=== PATIENT | male | born 1960 | race Caucasian/White ===

== ENCOUNTER → 2017-01-18 | Outpatient (CLI) | payer OTHER ==
[2017-01-18 08:02] LABS: BASO % 0.6 % (0.0-1.0); EOS # 0.3 10*3/uL (0.0-0.4); EOS % 4.4 % (1.0-4.0); HEMATOCRIT 45.8 % (42.0-52.0); IG # 0.1 10*3/uL (0.0-0.1); LYMPH # 2.3 10*3/uL (1.3-4.4); MEAN CELL VOLUME 87.4 fl (80.0-94.0); MEAN CORPUSCULAR HGB 30.5 pg (27.0-31.0); MEAN CORPUSCULAR HGB CONC 34.9 g/dl (33.0-37.0); MEAN PLATELET VOLUME 10.3 fl (9.6-12.3); MONO # 0.9 10*3/uL (0.1-1.0); MONO % 12.4 % (3.0-9.0); NEUT # 3.3 10*3/uL (2.3-7.9); NEUT % 47.9 % (47.0-73.0); PLATELET COUNT AUTOMATED 203 10*3/uL (130-400); RED BLOOD COUNT 5.24 10*6/uL (4.50-5.90); RED CELL DISTRI WIDTH 13.1 % (0-14.5); WHITE BLOOD COUNT 6.9 10*3/uL (4.8-10.8)
[2017-01-18 08:17] LABS: ALBUMIN 3.9 gm/dl (3.1-4.5); ALKALINE PHOSPHATASE 61 U/L (45-117); BILIRUBIN, TOTAL 0.4 mg/dl (0.2-1.0); BUN 22 mg/dl (7-24); CARBON DIOXIDE 23 mmol/L (21-32); CHLORIDE 108 mmol/L (98-107); CHOLESTEROL 221 mg/dL (<200); EST GLOM FILT AFRICAN AMERICAN > 60 ml/min; GLUCOSE 99 mg/dL (65-99); HDL CHOLESTEROL 36 mg/dl (40-60); LDL CHOLESTEROL 133 mg/dL (9-159); POTASSIUM 3.8 mmol/L (3.5-5.1); SGOT/AST 17 IU/L (3-35); SGPT/ALT 37 U/L (12-78); SODIUM 142 mmol/L (136-145); TOTAL PROTEIN 7.3 gm/dL (6.4-8.2); TRIGLYCERIDES 261 mg/dl (<150); VLDL CHOLESTEROL 52 mg/dL (6-40)
== END | disposition home or self-care (01) ==
LOC: LAB 06:58
PROVIDERS: Nurse Practitioner Family
DX: Z12.5 Encounter for screening for malignant neoplasm of prostate (principal); I10 Essential (primary) hypertension; R53.83 Other fatigue

== ENCOUNTER 2018-04-26 15:14 | Inpatient (IN) | payer OTHER ==
[~2018-04-26] VITALS: Ht 180.3 cm
--- NOTE | ~2018-04-26 | EKG ---
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 Electronically Signed On 04-29-2018 18:42:48 PST by Jayson Collazo MD CM:EKGRPT:ELECTROCARDIOGRAM REPORT [id number] MAYRA ESTEVEZ DRAFT REPORT MAYRA TRAORE M.D.
--- NOTE | ~2018-04-26 | ST ---
[place], [place] EXERCISE STRESS TEST REPORT NAME: MYNOR MAYS JR UNIT #: [id number] ROOM: 526 DOCTOR: SUMAN BESS MD BIRTHDATE: [birth year] DOS: 04/27/2018 EXERCISE TREADMILL STRESS TEST AND SUMMARY OF NUCLEAR PERFUSION SCAN IMAGING REFERRING PHYSICIAN: Dr. Banks. INDICATION: Central chest pain. The patient underwent standard Chetan protocol stress testing. Baseline EKG showed sinus bradycardia with nonspecific changes with a heart rate of 58. Baseline blood pressure was 142/74. Peak heart rate was 139 with a blood pressure of 162/58. The peak heart rate of 139 represents 97% of maximum predicted. The patient achieved a peak exercise level of 10 mets. The patient had no arrhythmias. No chest pain, no EKG changes. The patient completed 9 minutes on the treadmill. SUMMARY OF FINDINGS: 1. The patient had a negative stress test at peak and on an average exertion capacity. The patient's Muniz treadmill score was 9. 2. Please see separate report for perfusion scan imaging. SUMAN BESS MD CM:STRESS:EXERCISE STRESS TEST REPORT [id number] SUMAN BESS MD
--- NOTE | ~2018-04-26 | EKG ---
[place], [place] ELECTROCARDIOGRAM REPORT NAME: MYNOR MAYS JR UNIT #: [id number] ROOM: 526 DOCTOR: HERB DRAFT REPORT BIRTHDATE: [birth year] [facility] Test Date: 2018-04-26 Test Time: 15:17:42 Pat Name: MYNOR MAYS Department: Room: [facility] Gender: M Lens Blocker: NINI : 1960 Requested By: MAYRA TRAORE Order Number: [id number] Reading MD: Jayosn Collazo MD Measurements Intervals [place] Rate: 89 P: 53 [place]: 179 QRS: 15 QRSD: 100 T: 35 QT: 379 QTc: 462 Interpretive Statements Sinus rhythm Probable left atrial enlargement Electronically Signed On 04-29-2018 18:41:27 PST by Jayson Collazo MD CM:EKGRPT:ELECTROCARDIOGRAM REPORT [id number] MAYRA ESTEVEZ DRAFT REPORT MAYRA TRAORE M.D.
[2018-04-26 15:25] VITALS: BP 136/72
[2018-04-26 15:30] LABS: BASO % 0.4 % (0.0-1.0); EOS # 0.2 10*3/uL (0.0-0.4); EOS % 1.8 % (1.0-4.0); HEMATOCRIT 47.1 % (42.0-52.0); HEMOGLOBIN 16.5 g/dl (14.0-18.0); LYMPH # 2.2 10*3/uL (1.3-4.4); LYMPH % 22.7 % (27.0-41.0); MEAN CELL VOLUME 85.5 fl (80.0-94.0); MEAN CORPUSCULAR HGB 29.9 pg (27.0-31.0); MEAN PLATELET VOLUME 10.3 fl (9.6-12.3); MONO # 0.8 10*3/uL (0.1-1.0); MONO % 8.4 % (3.0-9.0); NEUT # 6.3 10*3/uL (2.3-7.9); NEUT % 66.2 % (47.0-73.0); PLATELET COUNT AUTOMATED 218 10*3/uL (130-400); RED BLOOD COUNT 5.51 10*6/uL (4.50-5.90); RED CELL DISTRI WIDTH 12.4 % (0-14.5); WHITE BLOOD COUNT 9.6 10*3/uL (4.8-10.8)
[2018-04-26 15:39] LABS: ACT PARTIAL THROMBO TIME 25.7 SECONDS (20.8-31.5)
[2018-04-26 15:47] LABS: ALBUMIN 4.7 gm/dl (3.1-4.5); ALKALINE PHOSPHATASE 71 U/L (45-117); BUN 18 mg/dl (7-24); CHLORIDE 105 mmol/L (98-107); CREATININE 1.49 mg/dL (0.70-1.30); POTASSIUM 3.6 mmol/L (3.5-5.1); SGOT/AST 19 IU/L (3-35); SGPT/ALT 33 U/L (12-78); SODIUM 139 mmol/L (136-145); TOTAL PROTEIN 8.2 gm/dL (6.4-8.2)
[2018-04-26 15:48] LABS: TROPONIN I < 0.015 ng/ml (<0.045)
[2018-04-26 15:59] VITALS: BP 136/70
[2018-04-26 17:26] VITALS: BP 115/68
[2018-04-26] MEDS ORDERED: CRESTOR5 MG PO (18:41)
[2018-04-26] MEDS ORDERED: SYNTHROID25 MCG PO (18:41)
[2018-04-26] MEDS ORDERED: NORVASC10 MG PO (18:41)
[2018-04-26] MEDS ORDERED: OMEPRAZOLE D/R20 MG PO (18:42)
[2018-04-26] MEDS ORDERED: VITAMIN D5000 UNIT PO (18:42)
[2018-04-26] MEDS ORDERED: ASPIRIN CHEWABL81 MG PO (18:42)
[2018-04-26] MEDS ORDERED: ADULTS 50+ MUL1 EACH PO (18:43)
[2018-04-26 19:00] VITALS: BP 123/66
[2018-04-27] VITALS: BP 118/69
[2018-04-27 06:20] LABS: BASO % 0.4 % (0.0-1.0); EOS # 0.3 10*3/uL (0.0-0.4); EOS % 3.6 % (1.0-4.0); HEMATOCRIT 45.8 % (42.0-52.0); HEMOGLOBIN 15.7 g/dl (14.0-18.0); LYMPH % 27.9 % (27.0-41.0); MEAN CELL VOLUME 87.2 fl (80.0-94.0); MEAN CORPUSCULAR HGB 29.9 pg (27.0-31.0); MEAN CORPUSCULAR HGB CONC 34.3 g/dl (33.0-37.0); MEAN PLATELET VOLUME 10.2 fl (9.6-12.3); MONO # 0.9 10*3/uL (0.1-1.0); MONO % 12.1 % (3.0-9.0); NEUT % 55.7 % (47.0-73.0); PLATELET COUNT AUTOMATED 179 10*3/uL (130-400); RED BLOOD COUNT 5.25 10*6/uL (4.50-5.90); RED CELL DISTRI WIDTH 12.6 % (0-14.5); WHITE BLOOD COUNT 7.2 10*3/uL (4.8-10.8)
[2018-04-27 06:38] LABS: BUN 19 mg/dl (7-24); CHLORIDE 106 mmol/L (98-107); CHOLESTEROL 149 mg/dL (<200); CREATININE 1.34 mg/dL (0.70-1.30); PHOSPHOROUS 3.3 mg/dL (2.5-4.9); POTASSIUM 3.9 mmol/L (3.5-5.1); SODIUM 139 mmol/L (136-145); TRIGLYCERIDES 119 mg/dl (<150); VLDL CHOLESTEROL 24 mg/dL (6-40)
[2018-04-27 06:48] LABS: HDL CHOLESTEROL 43 mg/dl (40-60); LDL CHOLESTEROL 82 mg/dL (9-159)
[2018-04-27 08:00] VITALS: BP 118/68
[2018-04-27 08:17] LABS: VITAMIN D, 25-HYDROXY 58.6 ng/mL (30-100)
[2018-04-27 12:00] VITALS: BP 117/58
[2018-04-27] MEDS ORDERED: Meclizine25 MG PO (13:33)
== END 2018-04-27 14:47 | disposition home or self-care (01) | DRG 313 ==
LOC: ED 15:14 → 5E 17:40 → EDHOLD 17:40 → 5E 18:04
PROVIDERS: Emergency Medicine; Student in an Organized Health Care Education/Training Program
PROC: 4A02XM4 Measurement of Cardiac Total Activity, External Approach (ICD-10-PCS; principal; 2018-04-27)
DX: R07.9 Chest pain, unspecified (principal); N17.0 Acute kidney failure with tubular necrosis; R73.9 Hyperglycemia, unspecified; K21.9 Gastro-esophageal reflux disease without esophagitis; E03.9 Hypothyroidism, unspecified; I12.9 Hypertensive chronic kidney disease with stage 1 through stage 4 chronic kidney disease, or unspecified chronic kidney disease; Z96.641 Presence of right artificial hip joint; N18.3 Chronic kidney disease, stage 3 (moderate); R42 Dizziness and giddiness; E83.41 Hypermagnesemia; E78.5 Hyperlipidemia, unspecified; Z79.82 Long term (current) use of aspirin; Z87.891 Personal history of nicotine dependence; Z82.49 Family history of ischemic heart disease and other diseases of the circulatory system

== ENCOUNTER → 2018-05-02 | Outpatient (CLI) | payer OTHER ==
[~2018-05-02] MED LIST: ADULTS 50+ MUL1 EACH PO; ASPIRIN CHEWABL81 MG PO; CRESTOR5 MG PO; Meclizine25 MG PO; NORVASC10 MG PO; OMEPRAZOLE D/R20 MG PO; SYNTHROID25 MCG PO; VITAMIN D5000 UNIT PO
== END | disposition home or self-care (01) ==
LOC: US 07:09
DX: N28.1 Cyst of kidney, acquired (principal); N32.89 Other specified disorders of bladder; I10 Essential (primary) hypertension; E78.5 Hyperlipidemia, unspecified; R79.89 Other specified abnormal findings of blood chemistry

== ENCOUNTER → 2018-05-12 | Outpatient (CLI) | payer OTHER | END | disposition home or self-care (01) | LOC: US 07:23 | DX: R79.89 Other specified abnormal findings of blood chemistry (principal) ==

== ENCOUNTER → 2018-05-23 | Outpatient (CLI) | payer OTHER | END | disposition home or self-care (01) | LOC: US 05-20 15:00 | DX: I10 Essential (primary) hypertension (principal); R79.89 Other specified abnormal findings of blood chemistry ==

== ENCOUNTER → 2020-04-30 | Outpatient (CLI) | payer OTHER | END | disposition home or self-care (01) | LOC: COVID19 12:39 | PROVIDERS: ATTEND Nurse Practitioner Family | DX: U07.1 COVID-19 (principal) ==

== ENCOUNTER → 2020-08-19 | Outpatient (CLI) | payer OTHER | END | disposition home or self-care (01) | LOC: RAD 08:50 | PROVIDERS: ATTEND Nurse Practitioner Family | DX: I51.7 Cardiomegaly (principal); R60.9 Edema, unspecified; R53.83 Other fatigue; I10 Essential (primary) hypertension; Z86.16 Personal history of COVID-19 ==

== ENCOUNTER → 2020-09-09 | Outpatient (CLI) | payer OTHER | END | disposition home or self-care (01) | LOC: CARD 09:18 | PROVIDERS: ATTEND Nurse Practitioner Family | DX: I11.9 Hypertensive heart disease without heart failure (principal); R53.83 Other fatigue; Z86.16 Personal history of COVID-19 ==

== ENCOUNTER → 2022-04-09 | Outpatient (CLI) | payer OTHER ==
[2022-04-09 07:54] LABS: BASO % 0.5 % (0.0-1.0); EOS # 0.3 10*3/uL (0.0-0.4); EOS % 4.2 % (1.0-4.0); HEMATOCRIT 49.8 % (42.0-52.0); LYMPH # 2.3 10*3/uL (1.3-4.4); MEAN CELL VOLUME 87.5 fl (80.0-94.0); MEAN CORPUSCULAR HGB 30.2 pg (27.0-31.0); MEAN CORPUSCULAR HGB CONC 34.5 g/dl (33.0-37.0); MEAN PLATELET VOLUME 10.2 fl (9.6-12.3); MONO # 0.9 10*3/uL (0.1-1.0); MONO % 11.4 % (3.0-9.0); NEUT # 4.1 10*3/uL (2.3-7.9); NEUT % 53.4 % (47.0-73.0); PLATELET COUNT AUTOMATED 198 10*3/uL (130-400); RED BLOOD COUNT 5.69 10*6/uL (4.50-5.90); WHITE BLOOD COUNT 7.6 10*3/uL (4.8-10.8)
[2022-04-09 11:08] LABS: ALKALINE PHOSPHATASE 45 U/L (45-117); BUN 22 mg/dl (7-24); CHLORIDE 107 mmol/L (98-107); CHOLESTEROL 216 mg/dL (<200); CREATININE 1.41 mg/dL (0.70-1.30); LDL CHOLESTEROL 146 mg/dL (9-159); POTASSIUM 3.9 mmol/L (3.5-5.1); SGOT/AST 26 IU/L (3-35); SGPT/ALT 53 U/L (12-78); SODIUM 139 mmol/L (136-145); TOTAL PROTEIN 7.8 gm/dL (6.4-8.2); TRIGLYCERIDES 134 mg/dl (<150)
== END | disposition home or self-care (01) ==
LOC: LAB 07:21
PROVIDERS: ATTEND Nurse Practitioner Family
DX: I10 Essential (primary) hypertension (principal); E78.5 Hyperlipidemia, unspecified; E03.9 Hypothyroidism, unspecified; R79.89 Other specified abnormal findings of blood chemistry